=== PATIENT | female | born 1960 | race Caucasian/White ===

== ENCOUNTER → 2018-09-04 | Outpatient (CLI) | payer OTHER | LOC: M RAD 08:13 | DX: R10.11 Right upper quadrant pain (principal) | CPT/HCPCS: J2805 ==

== ENCOUNTER 2019-08-21 21:39 | Emergency (ER) | payer OTHER ==
[~2019-08-21] VITALS: Ht 172.7 cm; Wt 75.0 kg
[2019-08-21 21:39] VITALS: BP 150/86
[2019-08-21] MEDS ORDERED: ESZO1TAB5 PO (21:51)
[2019-08-21] MEDS ORDERED: ROSU40TA4 PO (21:51)
[2019-08-21] MEDS ORDERED: OXYC1TAB23 PO (21:51)
[2019-08-21] MEDS ORDERED: LEVO88TA3 PO (21:51)
[2019-08-21] MEDS ORDERED: NAPR-837 PO (23:59)
[2019-08-22] MEDS ORDERED: NAPROXEN 250 MG TAB PO ONE
--- NOTE | 2019-08-22 02:35 | REP ---
Clinical: Trauma. Technique: AP and lateral views of the left tibia / fibula. Findings: No acute fracture or dislocation. Skeletal structures, joint spaces, and surrounding soft tissues are normal. No subcutaneous emphysema. No foreign body. Impression: No acute fracture or dislocation. Electronically Signed by Alfredo Lloyd MD 08/22/2019 02:27 A
--- NOTE | 2019-08-22 02:36 | REP ---
Clinical: Pain and swelling Technique: AP, lateral, bilateral oblique views left foot . Findings: The osseous structures and joint spaces are intact and normal. There is no evidence for acute fracture or dislocation. Surrounding soft tissues are unremarkable. No subcutaneous emphysema or radiodense foreign body. Impression: Normal left foot series . No acute fracture or dislocation. Electronically Signed by Alfredo Lloyd MD 08/22/2019 02:28 A
== END 2019-08-22 00:10 | disposition home or self-care (01) ==
LOC: M ED 21:39
DX: S93.402A Sprain of unspecified ligament of left ankle, initial encounter (principal); X50.1XXA Overexertion from prolonged static or awkward postures, initial encounter; Y92.099 Unspecified place in other non-institutional residence as the place of occurrence of the external cause; Y93.9 Activity, unspecified; Y99.9 Unspecified external cause status; M19.90 Unspecified osteoarthritis, unspecified site; E03.9 Hypothyroidism, unspecified; F17.200 Nicotine dependence, unspecified, uncomplicated; Z79.899 Other long term (current) drug therapy

== ENCOUNTER → 2022-08-30 | Outpatient (CLI) | payer OTHER ==
[~2022-08-30] MED LIST: ESZO1TAB5 PO; LEVO88TA3 PO; NAPR-837 PO; OXYC1TAB23 PO; ROSU40TA4 PO
== END ==
LOC: M RAD 12:39
PROVIDERS: ATTEND Nurse Practitioner Family
DX: Z12.2 Encounter for screening for malignant neoplasm of respiratory organs (principal); Z87.891 Personal history of nicotine dependence; R91.1 Solitary pulmonary nodule